=== PATIENT | female | born 1965 | race American Indian/Alaskan Native ===

== ENCOUNTER 2020-04-02 10:56 | Inpatient (IN) | payer MEDICAID ==
--- NOTE | 2020-04-02 11:58 | Event Note ---
ED Screening Note Date of service: 04/02/20 Time: 11:50 ED Screening Note: 54-year-old female presents with generalized upper abdominal pain with intermittent nausea and vomiting x1 week. Patient also complaining of neck pain. Past medical history: Hypertension, hernia repair She denies any injury, trauma, fall. She states she took her blood pressure medication today. This initial assessment/diagnostic orders/clinical plan/treatment(s) is/are subject to change based on patients health status, clinical progression and re- assessment by fellow clinical providers in the ED. Further treatment and workup at subsequent clinical providers discretion. Patient/guardian urged not to elope from the ED as their condition may be serious if not clinically assessed and managed. Initial orders include: cbc,cmp, ua
[2020-04-02] MEDS ORDERED: ONDANSETRON 4 MG ODT TAB PO ONE (12:01)
[2020-04-02] MEDS ORDERED: SODIUM CHLORIDE 0.9% 1000 ML 1,000 ML IV ONE (12:27)
[2020-04-02] MEDS ORDERED: ONDANSETRON 4 MG/2 ML INJ IV ONE (12:27)
[2020-04-02] MEDS ORDERED: FAMOTIDINE 20 MG/2 ML INJ IV ONE (12:27)
[2020-04-02] MEDS ORDERED: MORPHINE 4 MG/1 ML INJ IV ONE (12:28)
[2020-04-02 13:05] LABS: Basophils % (Auto) 0.3 % (0.0-1.8); Eosinophils # (Auto) 0.1 K/mm3 (0.0-0.4); Eosinophils % (Auto) 1.8 % (0.0-4.3); Hematocrit 38.7 % (30.3-42.9); Lymphocytes % (Auto) 26.9 % (13.4-35.0); Mean Corpuscular HGB Conc 34 % (30-34); Mean Corpuscular Volume 92 fl (79-97); Monocytes # (Auto) 0.5 K/mm3 (0.0-0.8); Monocytes % (Auto) 6.8 % (0.0-7.3); Platelet Count 266 K/mm3 (140-440); Red Blood Count 4.23 M/mm3 (3.65-5.03); Red Cell Distribution Width 14.7 % (13.2-15.2)
--- NOTE | 2020-04-02 13:29 | Ultrasound Report ---
ULTRASOUND ABDOMEN, LIMITED (RIGHT UPPER QUADRANT) INDICATION: RUQ/EPIGASTRIC PAIN. COMPARISON: None available. FINDINGS: Pancreas: Visualized portion shows no significant abnormality. Liver: No acute findings. Gallbladder: Several small gallstones are noted. There is borderline gallbladder wall edema. The sono grapher reported a positive sonographic Joshi sign. Bile ducts: Normal. Common Bile Duct measures 3 mm. Free fluid: None. Additional Findings: None. IMPRESSION: 1. While there is no common duct dilatation, gallstones are present with borderline gallbladder wall thickening. The development eng reported a positive sonographic Joshi sign. These findings are concernin g for acute cholecystitis, correlate clinically. Signer Name: Mingo Lennon MD Signed: 04/02/2020 1:25 PM Workstation Name: [id number]
[2020-04-02 13:37] LABS: Alanine Aminotransferase 7 units/L (7-56); Albumin 4.2 g/dL (3.9-5); BUN/Creatinine Ratio 11; Blood Urea Nitrogen 8 mg/dL (7-17); Calcium 9.2 mg/dL (8.4-10.2); Hemolysis Index 7
[2020-04-02 13:48] LABS: Bacteria,Urine 1+ /HPF (Negative); Bilirubin,Urine NEG (Negative); Blood,Urine NEG (Negative); Color,Urine Yellow (Yellow); Mucus,Urine FEW /HPF; Protein,Urine <15 mg/dL mg/dL (Negative); Urobilinogen,Urine < 2.0 mg/dL (<2.0)
[2020-04-02] MEDS ORDERED: cefTRIAXone/NS 1 GM/50 ML 1 GM/50 ML BAG IV ONE (14:34)
--- NOTE | 2020-04-02 14:51 | XRay Report ---
ABDOMEN 3 VIEW(S) INDICATION / CLINICAL INFORMATION: ABD PAIN, N,V. COMPARISON: None available. FINDINGS: TUBES / LINES: None. BOWEL GAS PATTERN: No significant abnormality. FREE AIR / EXTRALUMINAL GAS: None seen. ADDITIONAL FINDINGS: No significant additional findings. IMPRESSION: 1. No significant abnormality. Signer Name: Brett Young MD Signed: 04/02/2020 2:47 PM Workstation Name: [id number]
--- NOTE | 2020-04-02 14:56 | Emergency Department Report ---
<VICTORINA RAMOS - Last Filed: 04/02/20 16:08> ED Abdominal Pain HPI - General Chief Complaint: Abdominal Pain Stated Complaint: ABDOMINAL/NECK PAIN Time Seen by Provider: 04/02/20 12:01 Source: patient Mode of arrival: Ambulatory Limitations: No Limitations - History of Present Illness Initial Comments: 54-year-old female with a past medical history of obesity, GERD, hypertension, bilateral hernia repair, previous breast w reduction presents to the hospital complains 2 weeks of intermittent epigastric and right upper quadrant pain with approximately 2-3 episodes of vomiting with p.o. intake daily x1 week. Patient also complains of right-sided neck pain times several days worse with palpation and movement. Patient denies fever, hematemesis, hematochezia, sick contacts, recent travel. Last bowel movement was 3 days ago. Patient denies history of small bowel obstruction Severity scale (0 -10): 7 - Related Data Home Medications Medication Instructions Recorded Confirmed Last Taken Triamter/Hctz 37.5-25 mg 25 mg PO DAILY 04/02/20 04/02/20 04/02/20 [Maxzide-25] Previous Rx's Medication Instructions Recorded Last Taken Type Famotidine [Pepcid] 20 mg PO BID #30 tablet 04/02/20 Unknown Rx Nitrofurantoin [place]/M-Cryst 100 mg PO Q12HR #14 capsule 04/02/20 Unknown Rx [Macrobid CAP] Ondansetron [Zofran Odt] 4 mg PO Q8HR PRN #20 tab.rapdis 04/02/20 Unknown Rx traMADoL [Ultram 50 MG tab] 50 mg PO Q6HR PRN #20 tablet 04/02/20 Unknown Rx Allergies Allergy/AdvReac Type Severity Reaction Status Date / Time No Known Allergies Allergy Unverified 11/23/16 09:44 ED Review of Systems Comment: All other systems reviewed and negative ED Past Medical Hx - Past Medical History Hx Hypertension: Yes (2 YRS) Hx Congestive Heart Failure: ("THEY TOLD ME I HAD A LITTLE FLUID AROUND MY HEART") Hx Diabetes: Yes ("BORDERLINE") Hx GERD: Yes Hx Arthritis: Yes Hx HIV: No - Surgical History Hx Breast Surgery: Yes (BREAST REDUCTION) Additional Surgical History: Umbilical hernia repair - Social History Smoking Status: Current Every Day Smoker Substance Use Type: Alcohol - Medications Home Medications: Home Medications Medication Instructions Recorded Confirmed Last Taken Type Famotidine [Pepcid] 20 mg PO BID #30 tablet 04/02/20 Unknown Rx Nitrofurantoin [place]/M-Cryst 100 mg PO Q12HR #14 capsule 04/02/20 Unknown Rx [Macrobid CAP] Ondansetron [Zofran Odt] 4 mg PO Q8HR PRN #20 tab.rapdis 04/02/20 Unknown Rx Triamter/Hctz 37.5-25 mg 25 mg PO DAILY 04/02/20 04/02/20 04/02/20 History [Maxzide-25] traMADoL [Ultram 50 MG tab] 50 mg PO Q6HR PRN #20 tablet 04/02/20 Unknown Rx ED Physical Exam - General Limitations: No Limitations - Other Other exam information: General: No acute distress Head: Atraumatic Eyes: normal appearance ENT: Moist mucous membranes Neck: Normal appearance, no midline tenderness, right sided trapezius muscle tenderness to palpation and worse with movement Chest: Clear to auscultation bilaterally CV: Regular rate and rhythm Abdomen: Soft, normal bowel sounds, periumbilical scar noted from previous shelby ia repair. Right upper quadrant epigastric tenderness without rebound or guard Back: Normal inspection Extremity: Normal inspection, full range of motion Neuro: Alert O x 3, no facial asymmetry, speech clear, no gross motor sensory deficit Psych: Appropriate behavior Skin: No rash ED Course - Consultations Consultation #1: 04/02/20 15:30 Case d/w Dr Peguero air control/anti air warfare officer surgeon, ct reviewed with official report pending, Dr peguero at bedside to evaluate pt. 04/02/20 16:11 Patient prefers to try p.o. challenge and prefers to go home. CT report pending. Signed out to Dr. Sapphire Vivas to follow-up with CT report and p.o. challenge. plan to Discharge with prescribed meds if patient passes p.o. challenge and CT without additional findings surgical findings ED Medical Decision Making - Lab Data Result diagrams: 04/02/20 12:19 04/02/20 12:19 - Radiology Data Radiology results: report reviewed ULTRASOUND ABDOMEN, LIMITED (RIGHT UPPER QUADRANT) INDICATION: RUQ/EPIGASTRIC PAIN. COMPARISON: None available. FINDINGS: Pancreas: Visualized portion shows no significant abnormality. Liver: No acute findings. Gallbladder: Several small gallstones are noted. There is borderline gallbladder wall edema. The domestic maid reported a positive sonographic Joshi sign. Bile ducts: Normal. Common Bile Duct measures 3 mm. Free fluid: None. Additional Findings: None. IMPRESSION: 1. While there is no common duct dilatation, gallstones are present with borderline gallbladder wall thickening. The domestic maid reported a positive sonographic Joshi sign. These findings are concerning for acute cholecystitis, correlate clinically. - Medical Decision Making Patient received morphine, Zofran, and Pepcid with improvement in symptoms. Rocephin IV provided for UTI. Ultrasound report noted however, patient does not have leukocytosis, fever, or elevation LFTs/lipase to suggest cholecystitis. - Differential Diagnosis Biliary colic, gastroenteritis, obstruction, recurrent hernia, UTI Critical Care Time: No ED Disposition Clinical Impression: Biliary colic, Acute cholecystitis, UTI (urinary tract infection) Disposition: OP ADMIT IP TO THIS HOSP Is pt being admited?: No Does the pt Need Aspirin: No Condition: Stable Instructions: Biliary Colic (ED), Urinary Tract Infection in Women (ED), Cervical Sprain (ED) Additional Instructions: Take the medication as prescribed. Follow-up with your doctor or doctor/clinic provided. Return if symptoms worsen as indicated by your discharge instructions. Prescriptions: Nitrofurantoin [place]/M-Cryst [Macrobid CAP] 100 mg PO Q12HR #14 capsule Famotidine [Pepcid] 20 mg PO BID #30 tablet traMADoL [Ultram 50 MG tab] 50 mg PO Q6HR PRN #20 tablet PRN Reason: Pain Ondansetron [Zofran Odt] 4 mg PO Q8HR PRN #20 tab.rapdis PRN Reason: Nausea And Vomiting Referrals: ANASTACIA PEGUERO DO [Staff Physician] - 04/08/20 [facility] D[facility] MENCHACA MD [Primary Care Provider] - 3-5 Days <ESTELA VIVAS - Last Filed: 04/02/20 18:05> ED Review of Systems ROS: Stated complaint: ABDOMINAL/NECK PAIN Other details as noted in HPI ED Course Vital Signs 04/02/20 04/02/20 04/02/20 11:46 12:06 14:09 Temperature 98.8 F Pulse Rate 91 H 73 Respiratory 20 18 Rate Blood Pressure 155/91 164/93 [Right] O2 Sat by Pulse 100 100 Oximetry 04/02/20 17:37 Temperature Pulse Rate 73 Respiratory 20 Rate Blood Pressure 168/89 [Right] O2 Sat by Pulse 98 Oximetry ED Medical Decision Making - Lab Data Result diagrams: 04/02/20 12:19 04/02/20 12:19 Lab Results 04/02/20 04/02/20 04/02/20 Range/Units 12:07 12:19 12:19 WBC 7.3 (4.5-11.0) K/mm3 RBC 4.23 (3.65-5.03) M/mm3 Hgb 13.0 (10.1-14.3) gm/dl Hct 38.7 (30.3-42.9) % MCV 92 (79-97) fl MCH 31 (28-32) pg MCHC 34 (30-34) % RDW 14.7 (13.2-15.2) % Plt Count 266 (140-440) K/mm3 Lymph % (Auto) 26.9 (13.4-35.0) % [place] % (Auto) 6.8 (0.0-7.3) % Eos % (Auto) 1.8 (0.0-4.3) % Baso % (Auto) 0.3 (0.0-1.8) % Lymph # 2.0 (1.2-5.4) K/mm3 [place] # 0.5 (0.0-0.8) K/mm3 Eos # 0.1 (0.0-0.4) K/mm3 Baso # 0.0 (0.0-0.1) K/mm3 Seg Neutrophils % 64.2 (40.0-70.0) % Seg Neutrophils # 4.7 (1.8-7.7) K/mm3 Sodium 137 (137-145) mmol/L Potassium 3.9 (3.6-5.0) mmol/L Chloride 101.0 (98-107) mmol/L Carbon Dioxide 25 (22-30) mmol/L Anion Gap 15 mmol/L BUN 8 (7-17) mg/dL Creatinine 0.7 (0.7-1.2) mg/dL Estimated GFR > 60 ml/min BUN/Creatinine Ratio 11 % Glucose 92 (65-100) mg/dL Calcium 9.2 (8.4-10.2) mg/dL Total Bilirubin 0.50 (0.1-1.2) mg/dL AST 15 (5-40) units/L ALT 7 (7-56) units/L Alkaline Phosphatase 78 (35-129) units/L Total Protein 7.8 (6.3-8.2) g/dL Albumin 4.2 (3.9-5) g/dL Albumin/Globulin Ratio 1.2 % Lipase (13-60) units/L HCG, Qual (Negative) Urine Color Yellow (Yellow) Urine Turbidity Slightly-cloudy (Clear) Urine pH 7.0 (5.0-7.0) Ur Specific [place] 1.019 (1.003-1.030) Urine Protein <15 mg/dl (Negative) mg/dL Urine Glucose (UA) Neg (Negative) mg/dL Urine Ketones Neg (Negative) mg/dL Urine Blood Neg (Negative) Urine Nitrite Neg (Negative) Urine Bilirubin Neg (Negative) Urine Urobilinogen < 2.0 (<2.0) mg/dL Ur Leukocyte Esterase Lg (Negative) Urine WBC (Auto) 26.0 H (0.0-6.0) /HPF Urine RBC (Auto) 6.0 (0.0-6.0) /HPF U Epithel Cells (Auto) 8.0 (0-13.0) /HPF Urine Bacteria (Auto) 1+ (Negative) /HPF Urine Mucus Few /HPF 04/02/20 04/02/20 Range/Units 12:19 12:19 WBC (4.5-11.0) K/mm3 RBC (3.65-5.03) M/mm3 Hgb (10.1-14.3) gm/dl Hct (30.3-42.9) % MCV (79-97) fl MCH (28-32) pg MCHC (30-34) % RDW (13.2-15.2) % Plt Count (140-440) K/mm3 Lymph % (Auto) (13.4-35.0) % [place] % (Auto) (0.0-7.3) % Eos % (Auto) (0.0-4.3) % Baso % (Auto) (0.0-1.8) % Lymph # (1.2-5.4) K/mm3 [place] # (0.0-0.8) K/mm3 Eos # (0.0-0.4) K/mm3 Baso # (0.0-0.1) K/mm3 Seg Neutrophils % (40.0-70.0) % Seg Neutrophils # (1.8-7.7) K/mm3 Sodium (137-145) mmol/L Potassium (3.6-5.0) mmol/L Chloride (98-107) mmol/L Carbon Dioxide (22-30) mmol/L Anion Gap mmol/L BUN (7-17) mg/dL Creatinine (0.7-1.2) mg/dL Estimated GFR ml/min BUN/Creatinine Ratio % Glucose (65-100) mg/dL Calcium (8.4-10.2) mg/dL Total Bilirubin (0.1-1.2) mg/dL AST (5-40) units/L ALT (7-56) units/L Alkaline Phosphatase (35-129) units/L Total Protein (6.3-8.2) g/dL Albumin (3.9-5) g/dL Albumin/Globulin Ratio % Lipase 26 (13-60) units/L HCG, Qual Negative (Negative) Urine Color (Yellow) Urine Turbidity (Clear) Urine pH (5.0-7.0) Ur Specific [place] (1.003-1.030) Urine Protein (Negative) mg/dL Urine Glucose (UA) (Negative) mg/dL Urine Ketones (Negative) mg/dL Urine Blood (Negative) Urine Nitrite (Negative) Urine Bilirubin (Negative) Urine Urobilinogen (<2.0) mg/dL Ur Leukocyte Esterase (Negative) Urine WBC (Auto) (0.0-6.0) /HPF Urine RBC (Auto) (0.0-6.0) /HPF U Epithel Cells (Auto) (0-13.0) /HPF Urine Bacteria (Auto) (Negative) /HPF Urine Mucus /HPF - Medical Decision Making Patient was unable to tolerate p.o. and is continued to have nausea vomiting. She was given additional dose of antiemetic. Patient will be admitted to the hospitalist service and Dr. Peguero will consult Critical care attestation.: If time is entered above; I have spent that time in minutes in the direct care of this critically ill patient, excluding procedure time. ED Disposition Is pt being admited?: Yes Does the pt Need Aspirin: No Time of Disposition: 18:05
--- NOTE | 2020-04-02 16:24 | Consultation ---
History of Present Illness Consult date: 04/02/20 Reason for consult: gallstones Chief complaint: Abdominal pain - History of present illness History of present illness: 54-year-old female with history of obesity, hypertension, ventral hernia repair who presents to the emergency room with complaints of abdominal and neck pain. The patient has been complaining of epigastric and bilateral upper quadrant abdominal pain which she states is been present for the last several weeks. She states that the pain is intermittent and can become severe at times. She has not noticed any association with food however she states that she does become nauseated and vomit at times. The emesis is nonbloody and nonbilious. She has been having bowel movements. No fevers, chills. She describes the pain as sharp and sometimes burning. She denies sick contacts. She is asking for something to eat. Past History Past Medical History: hypertension (Obesity) Past Surgical History: hernia repair Social history: smoking (1 pack every other day), alcohol abuse (Occasional w ine) Family history: no significant family history Medications and Allergies Allergies Allergy/AdvReac Type Severity Reaction Status Date / Time No Known Allergies Allergy Unverified 11/23/16 09:44 Home Medications Medication Instructions Recorded Confirmed Last Taken Type Famotidine [Pepcid] 20 mg PO BID #30 tablet 04/02/20 Unknown Rx Ondansetron [Zofran Odt] 4 mg PO Q8HR PRN #20 tab.rapdis 04/02/20 Unknown Rx Triamter/Hctz 37.5-25 mg 25 mg PO DAILY 04/02/20 04/02/20 04/02/20 History [Maxzide-25] traMADoL [Ultram 50 MG tab] 50 mg PO Q6HR PRN #20 tablet 04/02/20 Unknown Rx Review of Systems All systems: negative (10 point review systems was performed negative except for that listed in HPI) Exam Vital Signs Temp 98.8 F 04/02/20 11:46 Narrative exam: Gen.: Awake, alert, oriented 3. No apparent distress ENT: Trachea midline. No lymphadenopathy. No scleral icterus or conjunctival pallor CV: S1, S2 present Respiratory: No audible wheezes Abdomen: Soft, obese, nondistended, tenderness to palpation in the right upper quadrant, epigastrium, left upper quadrant. No rebound, rigidity, guarding Extremities: No clubbing, cyanosis, edema Results - Labs 04/02/20 12:19 04/02/20 12:19 Abnormal lab results 04/02/20 Range/Units 12:07 Urine WBC (Auto) 26.0 H (0.0-6.0) /HPF Diabetes panel 04/02/20 Range/Units 12:19 Sodium 137 (137-145) mmol/L Potassium 3.9 (3.6-5.0) mmol/L Chloride 101.0 (98-107) mmol/L Carbon Dioxide 25 (22-30) mmol/L BUN 8 (7-17) mg/dL Creatinine 0.7 (0.7-1.2) mg/dL Glucose 92 (65-100) mg/dL Calcium 9.2 (8.4-10.2) mg/dL AST 15 (5-40) units/L ALT 7 (7-56) units/L Alkaline Phosphatase 78 (35-129) units/L Total Protein 7.8 (6.3-8.2) g/dL Albumin 4.2 (3.9-5) g/dL Calcium panel 04/02/20 Range/Units 12:19 Calcium 9.2 (8.4-10.2) mg/dL Albumin 4.2 (3.9-5) g/dL Pituitary panel 04/02/20 Range/Units 12:19 Sodium 137 (137-145) mmol/L Potassium 3.9 (3.6-5.0) mmol/L Chloride 101.0 (98-107) mmol/L Carbon Dioxide 25 (22-30) mmol/L BUN 8 (7-17) mg/dL Creatinine 0.7 (0.7-1.2) mg/dL Glucose 92 (65-100) mg/dL Calcium 9.2 (8.4-10.2) mg/dL Adrenal panel 04/02/20 Range/Units 12:19 Sodium 137 (137-145) mmol/L Potassium 3.9 (3.6-5.0) mmol/L Chloride 101.0 (98-107) mmol/L Carbon Dioxide 25 (22-30) mmol/L BUN 8 (7-17) mg/dL Creatinine 0.7 (0.7-1.2) mg/dL Glucose 92 (65-100) mg/dL Calcium 9.2 (8.4-10.2) mg/dL Total Bilirubin 0.50 (0.1-1.2) mg/dL AST 15 (5-40) units/L ALT 7 (7-56) units/L Alkaline Phosphatase 78 (35-129) units/L Total Protein 7.8 (6.3-8.2) g/dL Albumin 4.2 (3.9-5) g/dL - Imaging CT scan - abdomen: report reviewed, image reviewed CT scan - pelvis: report reviewed, image reviewed US - abdomen: report reviewed, image reviewed Assessment and Plan 54-year-old female with 1. Cholelithiasis 2. Urinary tract infection Pt stable and asking for something to eat. Pain has been present for several weeks, may be related to gallstones. No evidence for acute cholecystitis Plan: 1. PO challenge 2. IVF 3. prn pain control 4. If patient tolerates p.o. challenge and her pain is managed with p.o. medications, she may be discharged home with short-term follow-up in the surgery clinic. If she is unable to tolerate a p.o. challenge or her pain persist despite medications, recommend admission to the hospitalist service for symptom control and possible cholecystectomy. 5. Explained to patient that if she is discharged home, she should follow-up in the surgery clinic in 3 to 5 days. If her pain worsens and she is unable to tolerate a diet at home, she should return promptly to the emergency room. The patient prefers to go home and follow-up as an outpatient. She was agreeable to the plan. Discussed with Dr. Moreno Thank you, please call with questions or concerns
--- NOTE | 2020-04-02 16:28 | Cat Scan Report ---
CT of the abdomen and pelvis with contrast INDICATION: Mid and upper abdominal pain COMPARISON: 07/22/2018 FINDINGS: There is minimal basilar atelectasis. There is moderate-sized hiatal hernia. Liver, spleen, pancreas, adrenal glands and kidneys are unremarkable except for small hepatic and renal cysts. Gall stones are seen without cholecystitis. No biliary tree dilation. No fluid or adenopathy in the upper abdomen. CT of the pelvis shows a normal appendix. No uterine or adnexal masses. No diverticulosis or divertic ulitis. No hernia or bowel obstruction. Soft tissue in the midline abdominal wall is likely scarring. No pelvic fluid or adenopathy. No significant skeletal lesion. IMPRESSION: Incidental findings as described but no acute abnormality seen. Automated exposure control was utilized to diminish radiation dose. Signer Name: Brett Young MD Signed: 04/02/2020 4:24 PM Workstation Name: [id number]
[2020-04-02] MEDS ORDERED: ACETAMINOPHEN 325 MG TAB PO PRN (18:03)
[2020-04-02] MEDS ORDERED: ALBUTEROL 2.5 MG/3 ML NEBU IH PRN (18:03)
[2020-04-02] MEDS ORDERED: METOCLOPRAMIDE 10 MG/2 ML INJ IV ONE (18:04)
--- NOTE | 2020-04-02 18:06 | History and Physical Report ---
History of Present Illness Chief complaint: My stomach is hurting History of present illness: 54 YO Female with Obesity Hypoventilation Syndrome, GERD, HTN, DM, OA, Nicotine Dependence presents to ED for evaluation. Patient states that she has experienced abdominal pain over the last 2 weeks with worsening symptoms over the past 3 days. Patient states that her pain is currently 7/10, constant, worsening with palpation and movement, associated with nausea, and 3 episodes of vomiting, as well as decreased oral intake over the past 1 week. Patient states that her symptoms were initially intermittent but have become more frequent over the past 1 week. Patient transported to [facility] via private vehicle for further care and evaluation. Patient seen and evaluated in the emergency department. Lab and imaging studies reviewed. Patient underwent abdominal ultrasound which showed a positive Joshi sign which in combination with patient clinical symptoms is consistent with acute cholecystitis. Patient also found to have accelerated hypertension, urinary tract infection, and obesity hypoventilation syndrome. Surgical team consulted in ED. Patient admitted to surgical floor due to increased risk of decompensation. Patient initiated on IV antibiotic therapy, bowel rest, and IV fluid resuscitation therapy. Surgical intervention pending as per surgical team. Patient denies fever, chills, chest pain, palp itation, productive cough, skin rash, ingestion of food/water from new or different sources, bright red blood per rectum, or known ill contacts. No prior admission for review. All medication listed at time of admission has been reconciled. Past History Past Medical History: hypertension (Obesity) Past Surgical History: hernia repair Social history: single, smoking (1 pack every other day), alcohol abuse (Occasional wine) Family history: no significant family history Medications and Allergies Allergies Allergy/AdvReac Type Severity Reaction Status Date / Time No Known Allergies Allergy Unverified 11/23/16 09:44 Home Medications Medication Instructions Recorded Confirmed Last Taken Type Famotidine [Pepcid] 20 mg PO BID #30 tablet 04/02/20 Unknown Rx Nitrofurantoin Cassia/M-Cryst 100 mg PO Q12HR #14 capsule 04/02/20 Unknown Rx [Macrobid CAP] Ondansetron [Zofran Odt] 4 mg PO Q8HR PRN #20 tab.rapdis 04/02/20 Unknown Rx Triamter/Hctz 37.5-25 mg 25 mg PO DAILY 06/09/20 06/09/20 06/09/20 History [Maxzide-25] traMADoL [Ultram 50 MG tab] 50 mg PO Q6HR PRN #20 tablet 04/02/20 Unknown Rx Active Meds: Active Medications Acetaminophen (Tylenol) 650 mg PO Q4H PRN PRN Reason: Pain MILD(1-3)/Fever >100.5/DAY Albuterol (Proventil) 2.5 mg IH Q4HRT PRN PRN Reason: Shortness Of Breath Sodium Chloride (Nacl 0.9% 1000 Ml) 1,000 mls @ 100 mls/hr IV DIRECT KOBY Morphine Sulfate (Morphine) 2 mg IV Q4H PRN PRN Reason: Pain, Moderate (4-6) Ondansetron HCl (Zofran) 4 mg IV Q8H PRN PRN Reason: Nausea And Vomiting Sodium Chloride (Sodium Chloride Flush Syringe 10 Ml) 10 ml IV BID KOBY Sodium Chloride (Sodium Chloride Flush Syringe 10 Ml) 10 ml IV PRN PRN PRN Reason: LINE FLUSH Triamterene/HCTZ (Maxzide-25) each PO DAILY [facility] Review of Systems Constitutional: no weight loss, no weight gain, no fever, no chills, no sweats Ears, nose, mouth and throat: no ear pain, no ear discharge, no tinnitis, no decreased hearing, no nose pain Breasts: no change in shape, no swelling, no mass Cardiovascular: no chest pain, no orthopnea, no palpitations, no rapid/irregular heart beat, no edema, no syncope Respiratory: no cough, no cough with sputum, no excessive sputum, no hemoptysis, no shortness of breath Gastrointestinal: abdominal pain, nausea, vomiting, loss of appetite, no constipation, no change in bowel habits, no coffee ground emesis, no BRBPR, no melena, no hematochezia Genitourinary Female: no pelvic pain, no flank pain, no menorrhagia, no dysuria, no urinary frequency, no urgency Rectal: no pain, no incontinence, no bleeding Musculoskeletal: no neck stiffness, no neck pain, no shooting arm pain, no arm numbness/tingling, no low back pain, no shooting leg pain Integumentary: no rash, no pruritis, no redness, no sores, no wounds, no jaundice Neurological: no transient paralysis, no paralysis, no weakness, no parathesias, no tingling, no seizures, no syncope, no tremors, no ataxia Psychiatric: no anxiety, no memory loss, no change in sleep habits, no sleep disturbances, no insomnia, no hypersomnia, no change in appetite, no change in libido, no suicidal ideation Endocrine: no cold intolerance, no heat intolerance, no polyphagia, no polydipsia, no nocturia, no flushing Hematologic/Lymphatic: no easy bleeding, no lymphadenopathy, no lymphedema Allergic/Immunologic: no urticaria, no allergic rhinitis, no wheezing, no anaphylaxis, no angioedema Exam - Constitutional Vitals: Temp Pulse Resp BP Pulse Ox 98.8 F 73 20 168/89 98 04/02/20 11:46 04/02/20 17:37 04/02/20 17:37 04/02/20 17:37 04/02/20 17:37 General appearance: Present: mild distress, obese - EENT Eyes: Present: PERRL ENT: hearing intact, clear oral mucosa - Neck Neck: Present: supple, normal ROM - Respiratory Respiratory effort: normal Respiratory: bilateral: CTA - Cardiovascular Heart Sounds: Present: S1 & S2. Absent: rub, click - Extremities Extremities: pulses symmetrical, No edema Peripheral Pulses: within normal limits - Abdominal General gastrointestinal: Present: soft, tender, non-distended, normal bowel sounds Localized gastrointestinal: tender: RUQ Female genitourinary: Present: normal - Integumentary Integumentary: Present: clear, warm, dry - Musculoskeletal Musculoskeletal: gait normal, strength equal bilaterally - Psychiatric Psychiatric: appropriate mood/affect, intact judgment & insight - Neurologic Neurologic: CNII-XII intact, moves all extremities Results - Labs CBC & Chem 7: 04/02/20 12:19 04/02/20 12:19 Labs: Abnormal lab results 04/02/20 Range/Units 12:07 Urine WBC (Auto) 26.0 H (0.0-6.0) /HPF Assessment and Plan - Patient Problems (1) Acute cholecystitis Current Visit: Yes Status: Acute Plan to address problem: Surgical team consulted in ED, CT scan abdomen and pelvis, abdominal ultrasound, CBC, CMP, IV antibiotic therapy, IV fluid resuscitation therapy, bowel rest, pain control. Surgical intervention as per surgical team. (2) UTI (urinary tract infection) Current Visit: Yes Status: Acute Qualifiers: Encounter type: initial encounter Plan to address problem: IV antibiotic therapy, urinalysis, CBC, supportive care. (3) Obesity hypoventilation syndrome Current Visit: Yes Status: Acute Plan to address problem: Supplemental oxygen, nebulized therapy, noninvasive positive pressure ventilation as clinically indicated, incentive spirometry, early ambulation. (4) Nicotine dependence Current Visit: Yes Status: Acute Qualifiers: Nicotine product type: cigarettes Substance use status: in withdrawal Qualified Code(s): F17.213 - Nicotine dependence, cigarettes, with withdrawal Plan to address problem: Smoking cessation counseling, supportive care, behavior change counseling, +15 minutes. (5) DVT prophylaxis Current Visit: Yes Status: Acute Plan to address problem: SCD to bilateral lower extremities while in bed, patient is ambulatory.
[2020-04-02] MEDS: hydrALAZINE 20 MG/1 ML INJ IV PRN (18:26)
[2020-04-02] MEDS: MORPHINE 2 MG/1 ML INJ IV PRN ×2 (18:26→22:12)
[2020-04-02] MEDS: ONDANSETRON 4 MG/2 ML INJ IV PRN ×3 (18:26→22:13)
[2020-04-02] MEDS ORDERED: metroNIDAZOLE/NS 500 MG/100 ML 500 MG/100 ML BAG IV ONE (19:26)
[2020-04-02] MEDS: metroNIDAZOLE/NS 500 MG/100 ML 500 MG/100 ML BAG IV SCH (19:33)
[2020-04-02] MEDS: SODIUM CHLORIDE 0.9% 1000 ML 1,000 ML IV SCH (22:30)
[2020-04-03] MEDS: metroNIDAZOLE/NS 500 MG/100 ML 500 MG/100 ML BAG IV SCH ×3 (04:09→21:01)
[2020-04-03 05:24] LABS: Basophils % (Auto) 0.3 % (0.0-1.8); Eosinophils # (Auto) 0.2 K/mm3 (0.0-0.4); Eosinophils % (Auto) 2.4 % (0.0-4.3); Hematocrit 36.8 % (30.3-42.9); Hemoglobin 12.1 gm/dl (10.1-14.3); Lymphocytes # (Auto) 1.9 K/mm3 (1.2-5.4); Lymphocytes % (Auto) 29.1 % (13.4-35.0); Mean Corpuscular HGB Conc 33 % (30-34); Mean Corpuscular Volume 92 fl (79-97); Monocytes # (Auto) 0.5 K/mm3 (0.0-0.8); Monocytes % (Auto) 8.3 % (0.0-7.3); Platelet Count 237 K/mm3 (140-440); Red Blood Count 4.01 M/mm3 (3.65-5.03)
[2020-04-03 05:39] LABS: Alanine Aminotransferase 7 units/L (7-56); Albumin 3.7 g/dL (3.9-5); BUN/Creatinine Ratio 10; Blood Urea Nitrogen 9 mg/dL (7-17); Calcium 8.8 mg/dL (8.4-10.2); Hemolysis Index 7
[2020-04-03] MEDS: MORPHINE 2 MG/1 ML INJ IV PRN ×2 (08:34→21:01)
[2020-04-03] MEDS: TRIAMTER/HCTZ 37.5-25 MG TAB PO SCH (11:32)
--- NOTE | 2020-04-03 14:25 | Progress Note ---
Assessment and Plan 54-year-old female with 1. Cholecystitis 2. Urinary tract infection Pt stable and asking for something to eat. Pain has been present for several weeks, may be related to gallstones. No evidence for acute cholecystitis Plan: 1. Start clear liquid diet, n.p.o. past midnight 2. IV fluids 3. PRN pain and nausea control 4. DVT prophylaxis 5. GI prophylaxis 6. As patient continues to be symptomatic from her gallstones, with findings of borderline wall thickening of her gallbladder on ultrasound, I feel that her right upper quadrant pain is likely related to her gallstones. As patient is unable to tolerate a p.o. diet, would recommend proceeding with cholecystectomy. I discussed all risks, benefits, alternatives to surgery with the patient and questions were answered. Consent was obtained. 7. I also discussed with the patient that she has a moderate size hiatal hernia for which she will need referral to a foregut surgeon as an outpatient. The patient is added to the OR schedule for tomorrow as there is no time in the operating room today. Thank you, please call with questions or concerns Evaluation and treatment of this patient was during the time of the national and state emergency arising from COVID19 coronavirus pandemic. Treatment and procedures performed meet the current and available best practice and guidelines for patient during the COVID pandemic. Subjective Date of service: 04/03/20 Narrative: Patient seen and examined. She failed a p.o. challenge in the ER yesterday evening and was admitted to the hospital for right upper quadrant pain, nausea, vomiting. The patient states that she continues to have some nauseousness but no vomiting. She is having persistent right upper quadrant abdominal pain without radiation. No fevers, chills Objective Vital Signs - 12hr 04/03/20 04/03/20 04:26 12:11 Temperature 97.5 F L 98.2 F Pulse Rate 74 72 Respiratory 18 20 Rate Blood Pressure 131/79 116/66 O2 Sat by Pulse 93 97 Oximetry - General physical appearance Narrative Exam: Gen.: Awake, alert, oriented 3. No apparent distress ENT: Trachea midline. No lymphadenopathy. No scleral icterus or conjunctival pallor CV: S1, S2 present Respiratory: No audible wheezes Abdomen: Soft, nondistended, right upper quadrant tenderness to palpation. No rebound, rigidity, guarding Extremities: No clubbing, cyanosis, edema - Labs 04/03/20 04:51 04/03/20 04:51 Diabetes panel 04/03/20 Range/Units 04:51 Sodium 141 (137-145) mmol/L Potassium 3.8 (3.6-5.0) mmol/L Chloride 106.0 (98-107) mmol/L Carbon Dioxide 26 (22-30) mmol/L BUN 9 (7-17) mg/dL Creatinine 0.9 (0.7-1.2) mg/dL Glucose 102 H (65-100) mg/dL Calcium 8.8 (8.4-10.2) mg/dL AST 13 (5-40) units/L ALT 7 (7-56) units/L Alkaline Phosphatase 72 (35-129) units/L Total Protein 7.0 (6.3-8.2) g/dL Albumin 3.7 L (3.9-5) g/dL Calcium panel 04/03/20 Range/Units 04:51 Calcium 8.8 (8.4-10.2) mg/dL Albumin 3.7 L (3.9-5) g/dL Pituitary panel 04/03/20 Range/Units 04:51 Sodium 141 (137-145) mmol/L Potassium 3.8 (3.6-5.0) mmol/L Chloride 106.0 (98-107) mmol/L Carbon Dioxide 26 (22-30) mmol/L BUN 9 (7-17) mg/dL Creatinine 0.9 (0.7-1.2) mg/dL Glucose 102 H (65-100) mg/dL Calcium 8.8 (8.4-10.2) mg/dL Adrenal panel 04/03/20 Range/Units 04:51 Sodium 141 (137-145) mmol/L Potassium 3.8 (3.6-5.0) mmol/L Chloride 106.0 (98-107) mmol/L Carbon Dioxide 26 (22-30) mmol/L BUN 9 (7-17) mg/dL Creatinine 0.9 (0.7-1.2) mg/dL Glucose 102 H (65-100) mg/dL Calcium 8.8 (8.4-10.2) mg/dL Total Bilirubin 0.60 (0.1-1.2) mg/dL AST 13 (5-40) units/L ALT 7 (7-56) units/L Alkaline Phosphatase 72 (35-129) units/L Total Protein 7.0 (6.3-8.2) g/dL Albumin 3.7 L (3.9-5) g/dL
--- NOTE | 2020-04-03 20:21 | Progress Note ---
Assessment and Plan - Patient Problems (1) Acute cholecystitis Current Visit: Yes Status: Acute Plan to address problem: Surgical team consulted in ED, CT scan abdomen and pelvis reviewed, abdominal ultrasound reviewed, CBC, CMP, IV antibiotic therapy, IV fluid resuscitation therapy, bowel rest, pain control. Surgical intervention as per surgical team in a.m. (2) UTI (urinary tract infection) Current Visit: Yes Status: Acute Qualifiers: Encounter type: initial encounter Plan to address problem: IV antibiotic therapy, urinalysis, CBC, supportive care. (3) Obesity hypoventilation syndrome Current Visit: Yes Status: Acute Plan to address problem: Supplemental oxygen, nebulized therapy, noninvasive positive pressure ventila tion as clinically indicated, incentive spirometry, early ambulation. (4) Nicotine dependence Current Visit: Yes Status: Acute Qualifiers: Nicotine product type: cigarettes Substance use status: in withdrawal Qualified Code(s): F17.213 - Nicotine dependence, cigarettes, with withdrawal Plan to address problem: Smoking cessation counseling, supportive care, behavior change counseling, +15 minutes. (5) DVT prophylaxis Current Visit: Yes Status: Acute Plan to address problem: SCD to bilateral lower extremities while in bed, patient is ambulatory. History Interval history: 54 YO Female HD#2 with Acute Cholecystitis, UTI who convalesced well overnight. Patient continues to have pain and is unable to tolerate oral diet. Patient is pending surgical intervention in a.m. as per surgical team. Patient denies fever, chills, chest pain, palpitations, productive cough, vomiting, diarrhea. No reported nursing events overnight. Hospitalist Physical - Constitutional Vitals: Temp Pulse Resp BP Pulse Ox 98.6 F 74 24 129/73 94 04/03/20 16:52 04/03/20 16:52 04/03/20 16:52 04/03/20 16:52 04/03/20 16:52 General appearance: Present: mild distress, obese - EENT Eyes: Present: PERRL, EOM intact ENT: hearing intact - Neck Neck: Present: supple - Respiratory Respiratory effort: normal Respiratory: bilateral: CTA - Cardiovascular Rhythm: regular Heart Sounds: Present: S1 & S2 - Extremities Extremities: no ischemia Peripheral Pulses: within normal limits - Abdominal General gastrointestinal: soft, non-tender, non-distended - Integumentary Integumentary: Present: clear, warm, dry - Psychiatric Psychiatric: appropriate mood/affect, cooperative - Neurologic Neurologic: CNII-XII intact Results - Labs CBC & Chem 7: 04/03/20 04:51 04/03/20 04:51 Labs: Laboratory Last Values WBC 6.5 K/mm3 (4.5-11.0) 04/03/20 04:51 RBC 4.01 M/mm3 (3.65-5.03) 04/03/20 04:51 Hgb 12.1 gm/dl (10.1-14.3) 04/03/20 04:51 Hct 36.8 % (30.3-42.9) 04/03/20 04:51 MCV 92 fl (79-97) 04/03/20 04:51 MCH 30 pg (28-32) 04/03/20 04:51 MCHC 33 % (30-34) 04/03/20 04:51 RDW 15.0 % (13.2-15.2) 04/03/20 04:51 Plt Count 237 K/mm3 (140-440) 04/03/20 04:51 Lymph % (Auto) 29.1 % (13.4-35.0) 04/03/20 04:51 [place] % (Auto) 8.3 % (0.0-7.3) H 04/03/20 04:51 Eos % (Auto) 2.4 % (0.0-4.3) 04/03/20 04:51 Baso % (Auto) 0.3 % (0.0-1.8) 04/03/20 04:51 Lymph # 1.9 K/mm3 (1.2-5.4) 04/03/20 04:51 [place] # 0.5 K/mm3 (0.0-0.8) 04/03/20 04:51 Eos # 0.2 K/mm3 (0.0-0.4) 04/03/20 04:51 Baso # 0.0 K/mm3 (0.0-0.1) 04/03/20 04:51 Seg Neutrophils % 59.9 % (40.0-70.0) 04/03/20 04:51 Seg Neutrophils # 3.9 K/mm3 (1.8-7.7) 04/03/20 04:51 Sodium 141 mmol/L (137-145) 04/03/20 04:51 Potassium 3.8 mmol/L (3.6-5.0) 04/03/20 04:51 Chloride 106.0 mmol/L (98-107) 04/03/20 04:51 Carbon Dioxide 26 mmol/L (22-30) 04/03/20 04:51 Anion Gap 13 mmol/L 04/03/20 04:51 BUN 9 mg/dL (7-17) 04/03/20 04:51 Creatinine 0.9 mg/dL (0.7-1.2) 04/03/20 04:51 Estimated GFR > 60 ml/min 04/03/20 04:51 BUN/Creatinine Ratio 10 % 04/03/20 04:51 Glucose 102 mg/dL (65-100) H 04/03/20 04:51 POC Glucose 101 (70-105) 04/03/20 04:43 Calcium 8.8 mg/dL (8.4-10.2) 04/03/20 04:51 Total Bilirubin 0.60 mg/dL (0.1-1.2) 04/03/20 04:51 AST 13 units/L (5-40) 04/03/20 04:51 ALT 7 units/L (7-56) 04/03/20 04:51 Alkaline Phosphatase 72 units/L (35-129) 04/03/20 04:51 Total Protein 7.0 g/dL (6.3-8.2) 04/03/20 04:51 Albumin 3.7 g/dL (3.9-5) L 04/03/20 04:51 Albumin/Globulin Ratio 1.1 % 04/03/20 04:51 Lipase 26 units/L (13-60) 04/02/20 12:19 HCG, Qual Negative (Negative) 04/02/20 12:19 Urine Color Yellow (Yellow) 04/02/20 12:07 Urine Turbidity Slightly-cloudy (Clear) 04/02/20 12:07 Urine pH 7.0 (5.0-7.0) 04/02/20 12:07 Ur Specific [place] 1.019 (1.003-1.030) 04/02/20 12:07 Urine Protein <15 mg/dl mg/dL (Negative) 04/02/20 12:07 Urine Glucose (UA) Neg mg/dL (Negative) 04/02/20 12:07 Urine Ketones Neg mg/dL (Negative) 04/02/20 12:07 Urine Blood Neg (Negative) 04/02/20 12:07 Urine Nitrite Neg (Negative) 04/02/20 12:07 Urine Bilirubin Neg (Negative) 04/02/20 12:07 Urine Urobilinogen < 2.0 mg/dL (<2.0) 04/02/20 12:07 Ur Leukocyte Esterase Lg (Negative) 04/02/20 12:07 Urine WBC (Auto) 26.0 /HPF (0.0-6.0) H 04/02/20 12:07 Urine RBC (Auto) 6.0 /HPF (0.0-6.0) 04/02/20 12:07 U Epithel Cells (Auto) 8.0 /HPF (0-13.0) 04/02/20 12:07 Urine Bacteria (Auto) 1+ /HPF (Negative) 04/02/20 12:07 Urine Mucus Few /HPF 04/02/20 12:07 Microbiology: Microbiology 04/02/20 12:07 Urine,Clean Catch Urine Culture - Preliminary [place]/IV: Voiding Method Toilet IV Catheter Type [Left Peripheral IV Antecubital] Active Medications - Current Medications Current Medications: Generic Name Dose Route Start Last Admin Trade Name Freq PRN Reason Stop Dose Admin Acetaminophen 650 mg 04/02/20 18:03 Tylenol PO Q4H PRN Pain MILD(1-3)/Fever >100.5/DAY Albuterol 2.5 mg 04/02/20 18:03 Proventil IH Q4HRT PRN Shortness Of Breath Hydralazine HCl 10 mg 04/02/20 18:05 04/02/20 18:26 Apresoline IV 10 mg Q6HR PRN Administration Hypertension Sodium Chloride 1,000 mls @ 100 mls/hr 04/02/20 18:15 04/02/20 22:30 Nacl 0.9% 1000 Ml IV 100 mls/hr DIRECT KOBY Administration Levofloxacin/Dextrose 500 mg in 100 mls @ 100 mls/hr 04/03/20 10:00 04/03/20 11:22 Levaquin 500mg/100ml IV 100 mls/hr Q24H KOBY Administration Protocol Metronidazole 500 mg in 100 mls @ 100 mls/hr 04/02/20 19:00 04/03/20 12:30 Flagyl 500 Mg/100 Ml IV 100 mls/hr Q8H KOBY Administration Protocol Morphine Sulfate 2 mg 04/02/20 18:03 04/03/20 08:34 Morphine IV 2 mg Q4H PRN Administration Pain, Moderate (4-6) Ondansetron HCl 4 mg 04/02/20 18:03 04/02/20 22:13 Zofran IV 4 mg Q8H PRN Administration Nausea And Vomiting Sodium Chloride 10 ml 04/02/20 22:00 04/03/20 11:23 Sodium Chloride Flush Syringe 10 Ml IV 10 ml BID KOBY Administration Sodium Chloride 10 ml 04/02/20 18:03 Sodium Chloride Flush Syringe 10 Ml IV PRN PRN LINE FLUSH Triamterene/HCTZ 1 each 04/03/20 10:00 04/03/20 11:32 Maxzide-25 PO Not Given DAILY K[facility]Y
[2020-04-03] MEDS: SODIUM CHLORIDE 0.9% 1000 ML 1,000 ML IV SCH (21:01)
[2020-04-04] MEDS: metroNIDAZOLE/NS 500 MG/100 ML 500 MG/100 ML BAG IV SCH ×2 (04:37→10:36)
[2020-04-04] MEDS: TRIAMTER/HCTZ 37.5-25 MG TAB PO SCH (10:40)
[2020-04-04] MEDS ORDERED: LIDOCAINE (1%) 10 MG/1 ML VIAL 20 ML MDV ONE (13:40)
[2020-04-04] MEDS ORDERED: BUPIVACAINE/PF (0.5%) 5 MG/1 ML 30 ML VIAL INFILTRATI ONE ×2 (13:40→15:32)
[2020-04-04] MEDS ORDERED: LACTATED RINGERS 1,000 ML IV SCH (14:16)
[2020-04-04] MEDS ORDERED: SCOPOLAMINE TRANSDERMAL PATCH 72 HR TD NR (14:17)
--- NOTE | 2020-04-04 14:32 | Anesthesia Consultation ---
Anesthesia Consult and Med Hx Date of service: 04/04/20 - Airway Anesthetic Teeth Evaluation: Edentulous ROM Head & Neck: Adequate Mental/Hyoid Distance: Adequate Mallampati Class: Class II Intubation Access Assessment: Probably Good - Pulmonary Exam CTA: Yes - Cardiac Exam Cardiac Exam: RRR - Pre-Operative Health Status ASA Pre-Surgery Classification: ASA3 Proposed Anesthetic Plan: General - Pulmonary Hx Smoking: Yes Hx Respiratory Symptoms: No Hx Sleep Apnea: Yes (recently started CPAP) - Cardiovascular System Hx Hypertension: Yes Hx Heart Attack/AMI: No Hx Percutaneous Transluminal Coronary Angioplasty (PTCA): No Hx Cardia Arrhythmia: No - Central Nervous System CVA: No Hx Back Pain: Yes - Gastrointestinal Hx Gastroesophageal Reflux Disease: No - Endocrine Hx Renal Disease: No Hx Liver Disease: No Hx Insulin Dependent Diabetes: No Hx Non-Insulin Dependent Diabetes: No Hx Thyroid Disease: No - Hematic Hx Anemia: No - Other Systems Hx Obesity: Yes (BMI 51) - Additional Comments Anesthesia Medical History Comments: No hx anesthetic complications.
--- NOTE | 2020-04-04 14:33 | Anesthesia Day of Surgery ---
Anesthesia Day of Surgery - Day of Surgery Patient Examined: Yes Patient H&P Reviewed: Yes Patient is NPO: Yes
[2020-04-04] MEDS ORDERED: HYDROmorphone 1 MG/1 ML INJ IV PRN (14:34)
[2020-04-04] MEDS ORDERED: ePHEDrine SULFATE 50 MG/1 ML INJ ONE (15:02)
[2020-04-04] MEDS ORDERED: propofoL 200 MG/20 ML VIAL IV ONE (15:05)
[2020-04-04] MEDS ORDERED: ROCURONIUM 50 MG/5 ML INJ IV ONE (15:05)
[2020-04-04] MEDS ORDERED: LIDOCAINE MPF (2%) 20 MG/1 ML VIAL 5 ML ONE (15:05)
[2020-04-04] MEDS ORDERED: SUCCINYLCHOLINE CHLORIDE 200 MG/10 ML INJ MDV ONE (15:05)
[2020-04-04] MEDS ORDERED: NEOSTIGMINE 10MG/10 ML INJ MDV ONE (15:05)
[2020-04-04] MEDS ORDERED: PHENYLEPHRINE/NS 1,000 MCG/10 ML SYRINGE (OR USE) IV ONE (15:05)
[2020-04-04] MEDS ORDERED: fentaNYL 100 MCG/2 ML INJ ONE ×3 (15:05→16:39)
[2020-04-04] MEDS ORDERED: GLYCOPYRROLATE 0.4 MG/2 ML INJ ONE (15:05)
[2020-04-04] MEDS ORDERED: ONDANSETRON 4 MG/2 ML INJ ONE (15:05)
[2020-04-04] MEDS ORDERED: fentaNYL 250 MCG/5 ML INJ ONE (15:20)
[2020-04-04] MEDS ORDERED: WATER FOR IRRIG STERILE 1,500 ML BOTTLE IR ONE (15:32)
[2020-04-04] MEDS ORDERED: LIDOCAINE (1%) 10 MG/1 ML VIAL 20 ML MDV INFILTRATI ONE (15:32)
[2020-04-04] MEDS ORDERED: SODIUM CHLORIDE 0.9% IRR 1,500 ML BOTTLE IR ONE (15:33)
--- NOTE | 2020-04-04 16:48 | Post Operative Note ---
Pre-op diagnosis: acute cholecystitis Post-op diagnosis: same Findings: distended gallbladder with stones, adhesions to omentum Procedure: laparoscopic cholecystectomy Anesthesia: NILAY, local Surgeon: ANASTACIA GAYLE Bingo Attendant: JOCY COHN Estimated blood loss: minimal Pathology: list (gallbladder) Specimen disposition: to lab Condition: stable Disposition: PACU
--- NOTE | 2020-04-04 16:59 | Operative Report ---
Operative Report Operative Report: Date: 04/04/20 16:47 Pre-op diagnosis: acute cholecystitis Post-op diagnosis: same Findings: distended gallbladder with stones, adhesions to omentum Procedure: laparoscopic cholecystectomy Anesthesia: NILAY local Surgeon: ANASTACIA GAYLE Sorting Livestock Worker: JOCY COHN Estimated blood loss: minimal Pathology: list (gallbladder) Specimen disposition: to lab Condition: stable Disposition: PACU HPI and indication: Patient is a 54-year-old female with a history of morbid obesity and hypertension who presented to the emergency room with complaints of upper abdominal pain. The patient was found to have cholelithiasis on ultrasound and CT scan. She did not tolerate a p.o. challenge and therefore was admitted to the hospital. She continued to complain of persistent right upper quadrant abdominal pain and therefore it was recommended to proceed with cholecystectomy. All risks, benefits, alternatives to surgery were discussed with the patient and questions answered. Consent was obtained for laparoscopic cholecystectomy, possible open, possible cholangiogram Procedure in detail: The patient was identified in the preoperative area and taken back to the operating room, placed on the operating room table in supine position. After anesthesia was induced, the abdomen was prepped and draped in usual sterile fashion and timeout was performed. Local anesthetic was infilt rated into all of the skin incision sites. A herminio incision was made in the left upper quadrant through which a Veress needle was inserted. The Veress needle positioning was confirmed using the saline drop test and the abdomen insufflated to 15 mmHg. A 5 mm Optiview trocar was then placed through an incision in the right upper quadrant under direct visualization. The abdomen is inspected and there was no underlying injury to any of the abdominal structures. The Veress needle was identified and there was no injury in its tract, therefore it was removed. There were omental adhesions seen to the mid abdominal wall where the patient had a previous hernia repair. The gallbladder was visualized in the right upper quadrant. An additional 12 mm subxiphoid and 5 mm right lateral abdominal trochars were placed under direct visualization. A 5 mm trocar was placed slightly above and to the right of the umbilicus under direct visualization. The patient was placed in reverse Trendelenburg and tilted to the left. Omental adhesions to the liver and gallbladder were first dissected using hook electrocautery. The gallbladder was then decompressed using a laparoscopic needle and syringe. A total of 20 cc of dark green bile was aspirated. The patient had a very fatty liver, making the return retraction of the gallbladder over the liver difficult and therefore it was decided to perform a dome down approach. The peritoneum of the gallbladder was scored and dissection carried down using hook electrocautery in order to dissect the gallbladder off the liver bed. Once enough dissection was complete, the gallbladder was then able to be retracted cephalad and over the liver and the gallbladder neck was identified. Fatty tissue over the gallbladder neck as well as calluses noted were dissected meticulously using hook electrocautery. The cystic duct and artery were then carefully skeletonized using the [place] dissector and the critical view obtained. The cystic duct and artery were the only 2 structures seen entering the gallbladder. 2 clips were placed on the cystic artery proximally and one distally and this was transected in between the clips using hook electrocautery. 3 clips were placed on the proximal aspect of the cystic duct and one distally and this was transected in between the clips using a laparoscopic scissor. The remainder of the gallbladder was then dissected off the liver bed using hook electrocautery. The gallbladder was then placed into an Endo Catch bag and removed via the 12 mm port. The liver bed was checked for hemostasis which was carefully ensured. No bleeding or bile leakage was seen. The clips on the cystic duct and artery were visualized and intact. The patient was then placed back into neutral position and Morison's pouch in the gallbladder fossa were irrigated until the irrigant returned clear. The 12 mm port fascia was closed with interrupted 0 Vicryl sutures using the Delbert Bill device. The remaining ports were removed under direct visualization. Skin incisions were closed with 4-0 Monocryl subcuticular stitches and skin glue. All skin incisions were once again infiltrated with local anesthetic. At the end case all sponge, instrument, sharp counts were correct 2. The patient was awoken from anesthesia, extubated, taken to PACU in stable condition.
--- NOTE | 2020-04-04 17:49 | Post Anesthesia Evaluation ---
- Post Anesthesia Evaluation Patient Participated: Yes Airway Patent: Yes Stable Respiratory Function: Yes Nausea/Vomiting: No Temp > 96.8F: Yes Pain Manageable: Yes Adequeate Hydration: Yes Anesthesia Complications: No
--- NOTE | 2020-04-04 19:36 | Progress Note ---
Assessment and Plan - Patient Problems (1) Acute cholecystitis Current Visit: Yes Status: Acute Plan to address problem: Surgical team consulted in ED, CT scan abdomen and pelvis reviewed, abdominal ultrasound reviewed, CBC, CMP, IV antibiotic therapy, IV fluid resuscitation therapy, bowel rest, pain control. Surgical intervention today as per surgical team.. (2) UTI (urinary tract infection) Current Visit: Yes Status: Acute Qualifiers: Encounter type: initial encounter Plan to address problem: IV antibiotic therapy, urinalysis, CBC, supportive care. (3) Obesity hypoventilation syndrome Current Visit: Yes Status: Acute Plan to address problem: Supplemental oxygen, nebulized therapy, noninvasive positive pressure ventila tion as clinically indicated, incentive spirometry, early ambulation. (4) Nicotine dependence Current Visit: Yes Status: Acute Qualifiers: Nicotine product type: cigarettes Substance use status: in withdrawal Qualified Code(s): F17.213 - Nicotine dependence, cigarettes, with withdrawal Plan to address problem: Smoking cessation counseling, supportive care, behavior change counseling, +15 minutes. (5) DVT prophylaxis Current Visit: Yes Status: Acute Plan to address problem: SCD to bilateral lower extremities while in bed, patient is ambulatory. History Interval history: 54 YO Female HD#3 with Acute Cholecystitis, UTI who convalesced well overnight. Patient continues to have pain and is unable to tolerate oral diet. Patient is pending surgical intervention today as per surgical team. Patient denies fever, chills, chest pain, palpitations, productive cough, vomiting, diarrhea. No reported nursing events overnight. Hospitalist Physical - Constitutional Vitals: Temp Pulse Resp BP Pulse Ox 97.4 F L 60 14 153/91 96 04/04/20 17:40 04/04/20 18:10 04/04/20 18:10 04/04/20 18:10 04/04/20 18:10 General appearance: Present: mild distress, obese - EENT Eyes: Present: PERRL, EOM intact ENT: hearing intact - Neck Neck: Present: supple - Respiratory Respiratory effort: normal Respiratory: bilateral: CTA - Cardiovascular Rhythm: regular Heart Sounds: Present: S1 & S2 - Extremities Extremities: no ischemia Peripheral Pulses: within normal limits - Abdominal General gastrointestinal: soft, tender, non-distended, normal bowel sounds - Integumentary Integumentary: Present: clear, warm, dry - Psychiatric Psychiatric: appropriate mood/affect, cooperative - Neurologic Neurologic: CNII-XII intact Results - Labs CBC & Chem 7: 04/03/20 04:51 04/03/20 04:51 Labs: Laboratory Last Values WBC 6.5 K/mm3 (4.5-11.0) 04/03/20 04:51 RBC 4.01 M/mm3 (3.65-5.03) 04/03/20 04:51 Hgb 12.1 gm/dl (10.1-14.3) 04/03/20 04:51 Hct 36.8 % (30.3-42.9) 04/03/20 04:51 MCV 92 fl (79-97) 04/03/20 04:51 MCH 30 pg (28-32) 04/03/20 04:51 MCHC 33 % (30-34) 04/03/20 04:51 RDW 15.0 % (13.2-15.2) 04/03/20 04:51 Plt Count 237 K/mm3 (140-440) 04/03/20 04:51 Lymph % (Auto) 29.1 % (13.4-35.0) 04/03/20 04:51 Tompkins % (Auto) 8.3 % (0.0-7.3) H 04/03/20 04:51 Eos % (Auto) 2.4 % (0.0-4.3) 04/03/20 04:51 Baso % (Auto) 0.3 % (0.0-1.8) 04/03/20 04:51 Lymph # 1.9 K/mm3 (1.2-5.4) 04/03/20 04:51 Tompkins # 0.5 K/mm3 (0.0-0.8) 04/03/20 04:51 Eos # 0.2 K/mm3 (0.0-0.4) 04/03/20 04:51 Baso # 0.0 K/mm3 (0.0-0.1) 04/03/20 04:51 Seg Neutrophils % 59.9 % (40.0-70.0) 04/03/20 04:51 Seg Neutrophils # 3.9 K/mm3 (1.8-7.7) 04/03/20 04:51 Sodium 141 mmol/L (137-145) 04/03/20 04:51 Potassium 3.8 mmol/L (3.6-5.0) 04/03/20 04:51 Chloride 106.0 mmol/L (98-107) 04/03/20 04:51 Carbon Dioxide 26 mmol/L (22-30) 04/03/20 04:51 Anion Gap 13 mmol/L 04/03/20 04:51 BUN 9 mg/dL (7-17) 04/03/20 04:51 Creatinine 0.9 mg/dL (0.7-1.2) 04/03/20 04:51 Estimated GFR > 60 ml/min 04/03/20 04:51 BUN/Creatinine Ratio 10 % 04/03/20 04:51 Glucose 102 mg/dL (65-100) H 04/03/20 04:51 POC Glucose 101 (70-105) 04/03/20 04:43 Calcium 8.8 mg/dL (8.4-10.2) 04/03/20 04:51 Total Bilirubin 0.60 mg/dL (0.1-1.2) 04/03/20 04:51 AST 13 units/L (5-40) 04/03/20 04:51 ALT 7 units/L (7-56) 04/03/20 04:51 Alkaline Phosphatase 72 units/L (35-129) 04/03/20 04:51 Total Protein 7.0 g/dL (6.3-8.2) 04/03/20 04:51 Albumin 3.7 g/dL (3.9-5) L 04/03/20 04:51 Albumin/Globulin Ratio 1.1 % 04/03/20 04:51 Lipase 26 units/L (13-60) 04/02/20 12:19 HCG, Qual Negative (Negative) 04/02/20 12:19 Urine Color Yellow (Yellow) 04/02/20 12:07 Urine Turbidity Slightly-cloudy (Clear) 04/02/20 12:07 Urine pH 7.0 (5.0-7.0) 04/02/20 12:07 Ur Specific [place] 1.019 (1.003-1.030) 04/02/20 12:07 Urine Protein <15 mg/dl mg/dL (Negative) 04/02/20 12:07 Urine Glucose (UA) Neg mg/dL (Negative) 04/02/20 12:07 Urine Ketones Neg mg/dL (Negative) 04/02/20 12:07 Urine Blood Neg (Negative) 04/02/20 12:07 Urine Nitrite Neg (Negative) 04/02/20 12:07 Urine Bilirubin Neg (Negative) 04/02/20 12:07 Urine Urobilinogen < 2.0 mg/dL (<2.0) 04/02/20 12:07 Ur Leukocyte Esterase Lg (Negative) 04/02/20 12:07 Urine WBC (Auto) 26.0 /HPF (0.0-6.0) H 04/02/20 12:07 Urine RBC (Auto) 6.0 /HPF (0.0-6.0) 04/02/20 12:07 U Epithel Cells (Auto) 8.0 /HPF (0-13.0) 04/02/20 12:07 Urine Bacteria (Auto) 1+ /HPF (Negative) 04/02/20 12:07 Urine Mucus Few /HPF 04/02/20 12:07 Microbiology: Microbiology 04/02/20 12:07 Urine,Clean Catch Urine Culture - Final Hallman/IV: Voiding Method Toilet IV Catheter Type [Right Peripheral IV Antecubital] IV Catheter Type [Left Peripheral IV Antecubital] Active Medications - Current Medications Current Medications: Generic Name Dose Route Start Last Admin Trade Name Freq PRN Reason Stop Dose Admin Acetaminophen 650 mg 04/02/20 18:03 Tylenol PO Q4H PRN Pain MILD(1-3)/Fever >100.5/DAY Albuterol 2.5 mg 04/02/20 18:03 Proventil IH Q4HRT PRN Shortness Of Breath Hydralazine HCl 10 mg 04/02/20 18:05 04/02/20 18:26 Apresoline IV 10 mg Q6HR PRN Administration Hypertension Hydromorphone HCl 0.5 mg 04/04/20 14:34 Dilaudid IV Q10MIN PRN Pain , Severe (7-10) Sodium Chloride 1,000 mls @ 100 mls/hr 04/02/20 18:15 04/03/20 21:01 Nacl 0.9% 1000 Ml IV 100 mls/hr DIRECT KOBY Administration Lactated Ringer's 1,000 mls @ 100 mls/hr 04/04/20 14:16 04/04/20 14:20 Lactated Ringers IV 04/04/20 23:59 100 mls/hr DIRECT KOBY Administration Morphine Sulfate 2 mg 04/02/20 18:03 04/03/20 21:01 Morphine IV 2 mg Q4H PRN Administration Pain , Severe (7-10) Ondansetron HCl 4 mg 04/02/20 18:03 04/02/20 22:13 Zofran IV 4 mg Q8H PRN Administration Nausea And Vomiting Oxycodone/Acetaminophen 2 tab 04/04/20 16:46 Percocet 5/325 PO Q6H PRN Pain, Moderate (4-6) Scopolamine 1 each 04/04/20 14:17 04/04/20 14:20 Transderm-Scop TD 04/04/20 23:59 1 each PREOP NR Administration Sodium Chloride 10 ml 04/02/20 22:00 04/04/20 10:41 Sodium Chloride Flush Syringe 10 Ml IV 10 ml BID KOBY Administration Sodium Chloride 10 ml 04/02/20 18:03 Sodium Chloride Flush Syringe 10 Ml IV PRN PRN LINE FLUSH Triamterene/HCTZ 1 each 04/03/20 10:00 04/04/20 10:40 Maxzide-25 PO Not Given DAILY KOBY
[2020-04-04] MEDS: MORPHINE 2 MG/1 ML INJ IV PRN (22:02)
[2020-04-04] MEDS: hydrALAZINE 20 MG/1 ML INJ IV PRN (23:58)
[2020-04-04] MEDS: oxyCODONE /ACETAMINOPHEN 5-325MG TAB PO PRN (23:58)
[2020-04-05] MEDS: SODIUM CHLORIDE 0.9% 1000 ML 1,000 ML IV SCH (05:13)
[2020-04-05] MEDS: MORPHINE 2 MG/1 ML INJ IV PRN (05:13)
[2020-04-05] MEDS: TRIAMTER/HCTZ 37.5-25 MG TAB PO SCH (09:47)
[2020-04-05] MEDS: oxyCODONE /ACETAMINOPHEN 5-325MG TAB PO PRN (09:50)
--- NOTE | 2020-04-05 11:44 | Discharge Summary ---
Providers - Providers Date of Admission: 04/02/20 18:03 Attending physician: CHRISTINE WALL Primary care physician: WASHHOUSE HAND Hospitalization Condition: Stable Pertinent studies: CT scan abdomen and pelvis: Cholecystitis Procedures: Laparoscopic cholecystectomy Hospital course: 54 YO Female with Obesity Hypoventilation Syndrome, GERD, HTN, DM, OA, Nicotine Dependence presented to ED for evaluation. Patient stated that she had experienced abdominal pain over the prior 2 weeks with worsening symptoms over the 3 days prior to presentation. Patient stated that her pain was 7/10, constant, worsening with palpation and movement, associated with nausea, and 3 episodes of vomiting, as well as decreased oral intake over the previous 1 week. Patient stated that her symptoms were initially intermittent but have become more frequent over the past 1 week. Patient transported to [facility] via private vehicle for further care and evaluation. Patient seen and evaluated in the emergency department. Lab and imaging studies reviewed. Patient underwent abdominal ultrasound which showed a positive Joshi sign which in combination with patient clinical symptoms is consistent with acute cholecystitis. Patient also found to have accelerated hypertension, urinary tract infection, and obesity hypoventilation syndrome. Surgical team consulted in ED. Patient admitted to surgical floor due to increased risk of decompensation. Patient initiated on IV antibiotic therapy, bowel rest, and IV fluid resuscitation therapy. Patient denied fever, chills, chest pain, palpitation, productive cough, skin rash, ingestion of food/water from new or different sources, bright red blood per rectum, or known ill contacts. Patient treated with supportive care, bowel rest with mild improvement of symptoms. Patient medically optimized on hospital day 2. Patient taken to the operating room as per surgical team and underwent laparoscopic cholecystectomy. Patient treated with supportive care postoperatively. Patient diet advanced. On day of discharge the patient is medically optimized and back to usual state of health. Patient acknowledges pa in control with oral pain medication, patient tolerating diet. Patient knowledges flatus and bowel movement. Patient seen and evaluated prior to discharge but no significant new physical exam findings are elicited. Patient discharged home and instructed to follow with primary care physician within 3 to 5 days and to follow-up with surgery team as directed. Patient counseled regarding balanced diet, increase physical activity at discharge. Patient also instructed to follow-up with pulmonary as outpatient for sleep study. 35 minutes dedicated to patient discharge and coordination of care. Disposition: - TO HOME OR SELFCARE - Discharge Diagnoses (1) Acute cholecystitis Status: Acute (2) UTI (urinary tract infection) Status: Acute Qualifiers: Encounter type: initial encounter (3) Obesity hypoventilation syndrome Status: Acute (4) Nicotine dependence Status: Acute Qualifiers: Nicotine product type: cigarettes Substance use status: in withdrawal Qualified Code(s): F17.213 - Nicotine dependence, cigarettes, with withdrawal (5) DVT prophylaxis Status: Acute Core Measure Documentation - Palliative Care Palliative Care/ Comfort Measures: Not Applicable - Core Measures Any of the following diagnoses?: none Exam - Constitutional Vitals: Temp Pulse Resp BP Pulse Ox 98.0 F 72 18 132/82 94 04/05/20 06:05 04/05/20 06:05 04/05/20 06:05 04/05/20 06:05 04/05/20 08:31 General appearance: Present: obese - EENT Eyes: Present: PERRL ENT: hearing intact, clear oral mucosa - Neck Neck: Present: supple, normal ROM - Respiratory Respiratory effort: normal Respiratory: bilateral: CTA - Cardiovascular Heart Sounds: Present: S1 & S2. Absent: rub, click - Extremities Extremities: pulses symmetrical, No edema Peripheral Pulses: within normal limits - Abdominal General gastrointestinal: Present: soft, non-tender, non-distended, normal bowel sounds Female genitourinary: Present: normal - Integumentary Integumentary: Present: clear, warm, dry - Musculoskeletal Musculoskeletal: gait normal, strength equal bilaterally - Psychiatric Psychiatric: appropriate mood/affect, intact judgment & insight - Neurologic Neurologic: CNII-XII intact, moves all extremities Plan Activity: advance as tolerated Diet: low fat, low cholesterol, low salt Follow up with: ANASTACIA GAYLE DO [Staff Physician] - 14 Days PINE DAE MENCHACA MD [Referring] - 3-5 Days Prescriptions: Sennosides/Docusate Sodium [Docusate Sodium-Sennosides Tab] 1 each PO BID #30 tablet Nitrofurantoin [place]/M-Cryst [Macrobid CAP] 100 mg PO Q12HR #14 capsule Famotidine [Pepcid] 20 mg PO BID #30 tablet oxyCODONE /ACETAMINOPHEN [Percocet 5/325] 1 tab PO Q6HR PRN #30 tablet PRN Reason: Pain traMADoL [Ultram 50 MG tab] 50 mg PO Q6HR PRN #20 tablet PRN Reason: Pain Ondansetron [Zofran Odt] 4 mg PO Q8HR PRN #20 tab.rapdis PRN Reason: Nausea And Vomiting
--- NOTE | 2020-04-05 13:24 | Progress Note ---
Assessment and Plan 54-year-old female s/p laparoscopic cholecystectomy, POD 1 1. Cholecystitis 2. Urinary tract infection Pt stable with incisional pain managed with pain medications. Tolerating diet Plan: 1. Reg diet 2. IV fluids - dc 3. PRN PO pain and nausea control 4. DVT prophylaxis 5. GI prophylaxis 6. IS/pulm toilet 7. OK to dc from surgery standpoint with follow up in surgery clinic in 2 weeks. Verbal and written dc instructions left for patient. 8. I also discussed with the patient that she has a moderate size hiatal hernia for which she will need referral to a foregut surgeon as an outpatient. D/W Dr. Roblero Thank you, please call with questions or concerns Evaluation and treatment of this patient was during the time of the national and state emergency arising from COVID19 coronavirus pandemic. Treatment and p rocedures performed meet the current and available best practice and guidelines for patient during the COVID pandemic. Subjective Date of service: 04/05/20 Narrative: Pt seen and examined. c/o incisional pain localized to the epigastric incision. Pain controlled with pain medication. She is ambulating on her own. No f/c. Tolerating a diet. No n/v Objective Vital Signs - 12hr 04/05/20 04/05/20 06:05 08:31 Temperature 98.0 F Pulse Rate 72 Respiratory 18 Rate Blood Pressure 132/82 O2 Sat by Pulse 96 94 Oximetry - General physical appearance Narrative Exam: Gen: AAOx3. NAD CV: s1, S2+ resp: even and unlabored Abd: soft, ND, mild tenderness near epigastric incision. Incisions c/d/i. No r/r/g Ext: no c/c/e - Labs 04/03/20 04:51 04/03/20 04:51
[2020-04-05 13:29] VITALS: BP 126/87
== END 2020-04-05 13:15 | disposition home or self-care (01) | DRG 418 ==
LOC: ED 10:56 → 3A 18:03
PROVIDERS: ADMIT Internal Medicine; ATTEND Internal Medicine
PROC: 0FT44ZZ Resection of Gallbladder, Percutaneous Endoscopic Approach (ICD-10-PCS; principal; 2020-04-04)
DX: K80.00 Calculus of gallbladder with acute cholecystitis without obstruction (principal); E66.2 Morbid (severe) obesity with alveolar hypoventilation; N39.0 Urinary tract infection, site not specified; Z68.43 Body mass index [BMI] 50.0-59.9, adult; F17.213 Nicotine dependence, cigarettes, with withdrawal; K21.9 Gastro-esophageal reflux disease without esophagitis; I10 Essential (primary) hypertension; E11.9 Type 2 diabetes mellitus without complications; M19.90 Unspecified osteoarthritis, unspecified site; F17.210 Nicotine dependence, cigarettes, uncomplicated; Z71.6 Tobacco abuse counseling; Z79.4 Long term (current) use of insulin
CPT/HCPCS: 36415; 74022; 74177; 76705; 80053; 81001; 82962; 83690; 84703; 85025; 87086; 88304; 94760; 96374; 96375; G0378; J0330; J0360; J0696; J1956; J2270; J2370; J2405; J2704; J2710; J3010; J7030; J7120; Q0162; Q9967

== ENCOUNTER 2020-09-04 17:13 | Emergency (ER) | payer MEDICAID ==
[2020-09-04 21:42] VITALS: BP 124/74
[2020-09-04 21:58] LABS: Basophils % (Auto) 0.6 % (0.0-1.8); Eosinophils # (Auto) 0.2 K/mm3 (0.0-0.4); Eosinophils % (Auto) 2.6 % (0.0-4.3); Hematocrit 40.1 % (30.3-42.9); Hemoglobin 13.2 gm/dl (10.1-14.3); Lymphocytes % (Auto) 43.4 % (13.4-35.0); Mean Corpuscular HGB Conc 33 % (30-34); Mean Corpuscular Volume 93 fl (79-97); Monocytes # (Auto) 0.6 K/mm3 (0.0-0.8); Monocytes % (Auto) 9.2 % (0.0-7.3); Platelet Count 223 K/mm3 (140-440); Red Cell Distribution Width 15.8 % (13.2-15.2)
[2020-09-04 22:22] LABS: Alanine Aminotransferase 13 units/L (7-56); Albumin 4.1 g/dL (3.9-5); BUN/Creatinine Ratio 13; Blood Urea Nitrogen 12 mg/dL (7-17); Calcium 9.3 mg/dL (8.4-10.2); Hemolysis Index 9
[2020-09-04 23:08] LABS: Bilirubin,Urine NEG (Negative); Blood,Urine NEG (Negative); Calcium Oxalate Crystals,Urine 2+; Color,Urine Yellow (Yellow); Mucus,Urine 2+ /HPF
[2020-09-05] MEDS ORDERED: methylPREDNISolone Sod Succinate 125 MG/2 ML INJ IV ONE (00:13)
[2020-09-05] MEDS ORDERED: ASPIRIN 325 MG TAB PO ONE (00:13)
[2020-09-05] MEDS ORDERED: FAMOTIDINE 20 MG TAB PO ONE (00:23)
[2020-09-05] MEDS ORDERED: ALUM-MAG HYDROXIDE-SIMETHICONE 200-200-20MG/5ML ORAL LIQD 30 ML PO ONE (00:23)
[2020-09-05] MEDS ORDERED: LIDOCAINE VISCOUS 2% 15 ML ORAL LIQD PO ONE (00:23)
[2020-09-05] MEDS ORDERED: SODIUM CHLORIDE 0.9% 1000 ML 1,000 ML IV ONE (00:24)
[2020-09-05] MEDS ORDERED: DICYCLOMINE 20 MG/2 ML INJ IM ONE (00:24)
--- NOTE | 2020-09-05 01:32 | Vascular Lab Report ---
DUPLEX DOPPLER LOWER EXTREMITY VEINS, BILATERAL INDICATION: Lower leg pain. TECHNIQUE: Duplex doppler imaging was performed through the veins of both lower extremities using venous seth gege and other maneuvers. COMPARISON: None available. FINDINGS: Right Common Femoral vein: Negative. Right Superficial Femoral vein: Negative. Right Popliteal vein: Negative. Right Calf veins: Negative. Left Common Femoral vein: Negative. Left Superficial Femoral vein: Negative. Left Popliteal vein: Negative. Left Calf veins: Negative. Additional findings: None. IMPRESSION: 1. No sonographic evidence for DVT in either lower extremity. Signer Name: Dali Tariq MD Signed: 09/05/2020 1:27 AM Workstation Name: [id number]
--- NOTE | 2020-09-05 01:32 | XRay Report ---
CHEST 1 VIEW INDICATION / CLINICAL INFORMATION: cough. COMPARISON: 04/02/2020 FINDINGS: SUPPORT DEVICES: None. HEART / MEDIASTINUM: No significant abnormality. LUNGS / PLEURA: No significant pulmonary or pleural abnormality. Please note that the left lung base is poorly visualized due to overlying extrathoracic soft tissues/breast. No pneumothorax. ADDITIONAL FINDINGS: No significant additional findings. IMPRESSION: 1. No acute findings. Signer Name: Dali Tariq MD Signed: 09/05/2020 1:28 AM Workstation Name: [id number]
--- NOTE | 2020-09-05 03:44 | Cat Scan Report ---
CT abdomen pelvis w con INDICATION / CLINICAL INFORMATION: Patient complains of Generalized abdominal pain. TECHNIQUE: Axial CT imaging of abdomen and pelvis was obtained with IV contrast. Coronal and sagittal reformatte d imaging obtained and reviewed. All CT scans at this location are performed using CT dose reduction for ALARA by means of automated exposure control. COMPARISON: Prior CT abdomen/pelvis 04/02/2020 FINDINGS: CT abdomen with contrast demonstrates a small mass in the left lobe of the liver unchanged in appeara nce from prior studies, most likely small hemangioma. The liver is otherwise unremarkable. Spleen, pa ncreas, kidneys, and adrenal glands remain normal. Interval cholecystectomy since the most recent CT exam. No biliary dilatation. Small to moderate size hiatal hernia. CT pelvis with contrast demonstrates normal appearance of the appendix. No pelvic mass, free fluid, o r focal inflammatory change noted. GI tract is unremarkable. No acute finding identified within either lung base. No significant acute osseous abnormality. IMPRESSION: 1. No acute abnormality identified within the abdomen or pelvis. 2. Interval cholecystectomy since the prior study. 3. Stable benign hepatic lesion. 4. Small to moderate size hiatal hernia. Signer Name: Dali Tariq MD Signed: 09/05/2020 3:39 AM Workstation Name: [id number]
--- NOTE | 2020-09-05 04:02 | Emergency Department Report ---
ED Abdominal Pain HPI - General Chief Complaint: Abdominal Pain Stated Complaint: ABD PAIN, HEADACHE, LEG PAIN Source: patient Mode of arrival: Ambulatory Limitations: No Limitations - History of Present Illness Initial Comments: Patient is a 55-year-old -[place] female with a history of hypertension, brx-vajbfsi-nseasnmic diabetes, GERD and chronic osteoarthritis who presents to the ED with complaint of acute onset persistent severe epigastric pain, nausea and vomiting intermittently for the last 1 month. Patient also complains of severe bilateral lower extremity pain worse on the posterior right knee. Patient states that the epigastric pain is worse with food or having nausea and vomiting. Patient denies fall, traumatic injury, dizziness, syncope, chest jeanne n, shortness of breath, fever, chills, cough, heavy lifting, back pain, diarrhea, dysuria or urinary frequency and urgency, headache or neck pain, palpitations, vaginal bleeding or vaginal discharge and hematemesis. MD Complaint: abdominal pain (Epigastric pain), other (Bilateral lower leg pain, worse on the right popliteal area) -: Sudden, month(s) (1) Location: epigastric Radiation: none Migration to: epigastric Severity: severe Severity scale (0 -10): 7 Quality: cramping, burning Consistency: constant Improves With: nothing Worsens With: eating, vomiting Associated Symptoms: denies other symptoms, nausea, vomiting, anorexia. denies: diarrhea, fever, chills, dysuria, hematemesis, hematochezia, melena, syncope, other - Related Data Home Medications Medication Instructions Recorded Confirmed Last Taken Triamter/Hctz 37.5-25 mg 25 mg PO DAILY 04/02/20 04/02/20 04/02/20 [Maxzide-25] Previous Rx's Medication Instructions Recorded Last Taken Type Nitrofurantoin Jasper/M-Cryst 100 mg PO Q12HR #14 capsule 04/02/20 Unknown Rx [Macrobid CAP] traMADoL [Ultram 50 MG tab] 50 mg PO Q6HR PRN #20 tablet 04/02/20 Unknown Rx Sennosides/Docusate Sodium 1 each PO BID #30 tablet 04/05/20 Unknown Rx [Docusate Sodium-Sennosides Tab] oxyCODONE /ACETAMINOPHEN [Percocet 1 tab PO Q6HR PRN #30 tablet 04/05/20 Unknown Rx 5/325] Ondansetron [Zofran Odt] 4 mg PO Q8HR PRN #12 tab.rapdis 05/01/20 Unknown Rx Dicyclomine [Bentyl] 20 mg PO Q6H PRN #30 tablet 09/05/20 Unknown Rx Famotidine [Pepcid] 20 mg PO BID #60 tablet 09/05/20 Unknown Rx Naproxen 500 mg PO Q12H PRN #30 tablet 09/05/20 Unknown Rx Ondansetron [Zofran ODT TAB] 4 mg PO Q6HR PRN #20 tab.rapdis 09/05/20 Unknown Rx Allergies Allergy/AdvReac Type Severity Reaction Status Date / Time No Known Allergies Allergy Verified 05/01/20 10:03 ED Review of Systems ROS: Stated complaint: ABD PAIN, HEADACHE, LEG PAIN Other details as noted in HPI Constitutional: malaise. denies: chills, fever Eyes: denies: eye pain, eye discharge, vision change ENT: denies: ear pain, throat pain Respiratory: denies: cough, shortness of breath, wheezing Cardiovascular: denies: chest pain, palpitations Endocrine: no symptoms reported Gastrointestinal: abdominal pain (Epigastric pain), nausea, vomiting. denies: diarrhea Genitourinary: denies: urgency, dysuria, discharge Musculoskeletal: arthralgia (Bilateral lower extremity pain and knee pain). denies: back pain, joint swelling Skin: denies: rash, lesions Neurological: denies: headache, weakness, paresthesias Psychiatric: denies: anxiety, depression Hematological/Lymphatic: denies: easy bleeding, easy bruising ED Past Medical Hx - Past Medical History Previous Medical History?: Yes Hx Hypertension: Yes Hx Heart Attack/AMI: No Hx Congestive Heart Failure: No ("THEY TOLD ME I HAD A LITTLE FLUID AROUND MY HEART") Hx Diabetes: Yes ("BORDERLINE") Hx GERD: Yes Hx Liver Disease: No Hx Renal Disease: No Hx Arthritis: Yes Hx Seizures: No Hx Asthma: No Hx COPD: No Hx Dementia: No Hx HIV: No - Surgical History Past Surgical History?: Yes Hx Breast Surgery: Yes (BREAST REDUCTION) Additional Surgical History: Umbilical hernia repair - Social History Smoking Status: Never Smoker Substance Use Type: None - Medications Home Medications: Home Medications Medication Instructions Recorded Confirmed Last Taken Type Nitrofurantoin Jasper/M-Cryst 100 mg PO Q12HR #14 capsule 04/02/20 Unknown Rx [Macrobid CAP] Triamter/Hctz 37.5-25 mg 25 mg PO DAILY 04/02/20 04/02/20 04/02/20 History [Maxzide-25] traMADoL [Ultram 50 MG tab] 50 mg PO Q6HR PRN #20 tablet 04/02/20 Unknown Rx Sennosides/Docusate Sodium 1 each PO BID #30 tablet 04/05/20 Unknown Rx [Docusate Sodium-Sennosides Tab] oxyCODONE /ACETAMINOPHEN [Percocet 1 tab PO Q6HR PRN #30 tablet 04/05/20 Unknown Rx 5/325] Ondansetron [Zofran Odt] 4 mg PO Q8HR PRN #12 tab.rapdis 05/01/20 Unknown Rx Dicyclomine [Bentyl] 20 mg PO Q6H PRN #30 tablet 09/05/20 Unknown Rx Famotidine [Pepcid] 20 mg PO BID #60 tablet 09/05/20 Unknown Rx Naproxen 500 mg PO Q12H PRN #30 tablet 09/05/20 Unknown Rx Ondansetron [Zofran ODT TAB] 4 mg PO Q6HR PRN #20 tab.rapdis 09/05/20 Unknown Rx ED Physical Exam - General Limitations: No Limitations General appearance: alert, in no apparent distress - Head Head exam: Present: atraumatic, normocephalic, normal inspection - Eye Eye exam: Present: normal appearance, PERRL, EOMI Pupils: Present: normal accommodation - ENT ENT exam: Present: normal exam, normal orophraynx, mucous membranes moist, TM's normal bilaterally, normal external ear exam - Neck Neck exam: Present: normal inspection, full ROM. Absent: tenderness - Respiratory Respiratory exam: Present: normal lung sounds bilaterally. Absent: respiratory distress, wheezes, rhonchi, chest wall tenderness, accessory muscle use, decreased breath sounds - Cardiovascular Cardiovascular Exam: Present: regular rate, normal rhythm, normal heart sounds. Absent: systolic murmur, diastolic murmur, rubs, gallop - GI/Abdominal GI/Abdominal exam: Present: soft, tenderness (Palpable epigastric abdominal tenderness), normal bowel sounds. Absent: guarding, rebound, hyperactive bowel sounds, hypoactive bowel sounds, organomegaly, mass - Extremities Exam Extremities exam: Present: normal inspection, full ROM, normal capillary refill - Back Exam Back exam: Present: normal inspection, full ROM. Absent: tenderness, CVA tenderness (R), CVA tenderness (L), muscle spasm, paraspinal tenderness, vertebral tenderness - Neurological Exam Neurological exam: Present: alert, oriented X3, CN II-XII intact, normal gait, reflexes normal - Psychiatric Psychiatric exam: Present: normal affect, normal mood - Skin Skin exam: Present: warm, dry, intact, normal color. Absent: rash ED Course Vital Signs 09/04/20 21:40 Temperature 98.2 F Pulse Rate 77 Respiratory 18 Rate Blood Pressure 124/74 O2 Sat by Pulse 97 Oximetry ED Medical Decision Making - Lab Data Result diagrams: 09/04/20 21:46 09/04/20 21:46 - Radiology Data Radiology results: report reviewed, [place] [address] Cat Scan Report Signed Patient: DANIEL MEIER MR#: [id number] : 1965 Acct:[id number] Age/Sex: 55 / F ADM Date: 09/04/20 Loc: ED Attending Dr: Ordering Physician: WINIFRED FERRARI Date of Service: 09/05/20 Procedure(s): CT abdomen pelvis w con Accession Number(s): [id number] cc: WINIFRED FERRARI CT abdomen pelvis w con INDICATION / CLINICAL INFORMATION: Patient complains of Generalized abdominal pain. TECHNIQUE: Axial CT imaging of abdomen and pelvis was obtained with IV contrast. Coronal and sagittal reformatted imaging obtained and reviewed. All CT scans at this location are performed using CT dose reduction for ALARA by means of automated exposure control. COMPARISON: Prior CT abdomen/pelvis 04/02/2020 FINDINGS: CT abdomen with contrast demonstrates a small mass in the left lobe of the liver unchanged in appearance from prior studies, most likely small hemangioma. The liver is otherwise unremarkable. Spleen, pancreas, kidneys, and adrenal glands remain normal. Interval cholecystectomy since the most recent CT exam. No biliary dilatation. Small to moderate size hiatal hernia. CT pelvis with contrast demonstrates normal appearance of the appendix. No pelvic mass, free fluid, or focal inflammatory change noted. GI tract is unremarkable. No acute finding identified within either lung base. No significant acute osseous abnormality. IMPRESSION: 1. No acute abnormality identified within the abdomen or pelvis. 2. Interval cholecystectomy since the prior study. 3. Stable benign hepatic lesion. 4. Small to moderate size hiatal hernia. Signer Name: Dali Tariq MD Signed: 09/05/2020 3:39 AM Workstation Name: [id number] Transcribed By: JR Dictated By: Dali Tariq MD Electronically Authenticated By: Dali Tariq MD Signed Date/Time: 09/05/20338 DD/ 3 TD/TT: Findings [facility] [address] [place] [address] Vascular Lab Report Signed Patient: DANIEL MEIER MR#: [id number] : 1965 Acct:[id number] Age/Sex: 55 / F ADM Date: 09/04/20 Loc: ED Attending Dr: Ordering Physician: WINIFRED FERRARI Date of Service: 09/05/20 Procedure(s): VL venous duplex LE BILAT Accession Number(s): [id number] cc: WINIFRED FERRARI DUPLEX DOPPLER LOWER EXTREMITY VEINS, BILATERAL INDICATION: Lower leg pain. TECHNIQUE: Duplex doppler imaging was performed through the veins of both lower extremities using venous compression and other maneuvers. COMPARISON: None available. FINDINGS: Right Common Femoral vein: Negative. Right Superficial Femoral vein: Negative. Right Popliteal vein: Negative. Right Calf veins: Negative. Left Common Femoral vein: Negative. Left Superficial Femoral vein: Negative. Left Popliteal vein: Negative. Left Calf veins: Negative. Additional findings: None. IMPRESSION: 1. No sonographic evidence for DVT in either lower extremity. Signer Name: Dali Tariq MD Signed: 09/05/2020 1:27 AM Workstation Name: [id number] Transcribed By: Dictated By: Dali Tariq MD Electronically Authenticated By: Dali Tariq MD Signed Date/Time: 09/05/20126 DD/ 6 TD/TT: Findings [address] [address] XRay Report Signed Patient: DANIEL MEIER MR#: [id number] : 1965 Acct:[id number] Age/Sex: 55 / F ADM Date: 09/04/20 Loc: ED Attending Dr: Ordering Physician: WINIFRED FERRARI Date of Service: 09/05/20 Procedure(s): XR chest 1V ap Accession Number(s): [id number] cc: WINIFRED FERRARI Fluoro Time In Minutes: CHEST 1 VIEW INDICATION / CLINICAL INFORMATION: cough. COMPARISON: 04/02/2020 FINDINGS: SUPPORT DEVICES: None. HEART / MEDIASTINUM: No significant abnormality. LUNGS / PLEURA: No significant pulmonary or pleural abnormality. Please note that the left lung base is poorly visualized due to overlying extrathoracic soft tissues/breast. No pneumothorax. ADDITIONAL FINDINGS: No significant additional findings. IMPRESSION: 1. No acute findings. Signer Name: Dali Tariq MD Signed: 09/05/2020 1:28 AM Workstation Name: [id number] Transcribed By: Dictated By: Dali Tariq MD Electronically Authenticated By: Dali Tariq MD Signed Date/Time: 09/05/20127 DD/ 6 TD/TT: - Medical Decision Making This is a 55-year-old -[place] female with a history of hypertension, spu-ejmbqlz-oncuraokk diabetes, GERD and chronic osteoarthritis who presents to the ED with complaint of acute onset persistent severe epigastric pain, nausea and vomiting intermittently for the last 1 month. Patient also complains of severe bilateral lower extremity pain worse on the posterior right knee. Patient states that the epigastric pain is worse with food or having nausea and vomiting. In the ED, patient is alert and oriented x3 and is not in distress. Patient was treated for pain in the ED, also treated with antacids and antiemetics. Lab test results were reviewed and are all nonactionable. Chest x-ray shows no acute cardiopulmonary abnormalities. Bilateral lower extremity Doppler ultrasound showed no sonographic evidence of DVT. Abdomen pelvis CT scan with contrast showed no acute abnormality identified within the abdomen or pelvis. It also showed interval cholecystectomy since the prior study, but otherwise stable benign hepatic lesion and small to moderate size hiatal hernia. On reevaluation, patient's nausea and vomiting resolved with medication. The epigastric pain also resolved with treatment. Patient was discharged home on pain medications and antiemetics as well as antacids. Patient was advised to follow-up with her primary care physician in 5 to 7 days for reevaluation. Patient was advised return to the ED immediately if symptoms get worse. - Differential Diagnosis GERD; pancreatitis; gastritis; gastroenteritis; DVT; osteoarthritis Critical care attestation.: If time is entered above; I have spent that time in minutes in the direct care of this critically ill patient, excluding procedure time. ED Disposition Clinical Impression: Acute epigastric pain, Nausea and vomiting in adult patient, Chronic osteoarthritis GERD (gastroesophageal reflux disease) Qualifiers: Esophagitis presence: without esophagitis Qualified Code(s): K21.9 - Gastro- esophageal reflux disease without esophagitis Disposition: -01 TO HOME OR SELFCARE Is pt being admited?: No Does the pt Need Aspirin: No Condition: Stable Instructions: Abdominal Pain (ED), Nausea and Vomiting, Adult, [id number], Gastroesophageal Reflux Disease, Adult, [id number], Food Choices for G astroesophageal Reflux Disease, Adult, [id number], Abdominal Pain, Adult, Skms-[id number]-Pify Additional Instructions: All lab test results are unremarkable. Chest x-ray shows no acute cardiopulmonary abnormalities or pneumonitis. Lower extremity Doppler ultrasound showed no evidence of DVT. Abdomen pelvis CT scan with contrast showed no acute abnormalities. Therefore take medication with food, drink plenty of fluids and follow-up with your primary care physician in 5 to 7 days for reevaluation. Return to the ED immediately if symptoms get worse. Prescriptions: Dicyclomine [Bentyl] 20 mg PO Q6H PRN #30 tablet PRN Reason: Abdominal pain Naproxen 500 mg PO Q12H PRN #30 tablet PRN Reason: Pain , Severe (7-10) Famotidine [Pepcid] 20 mg PO BID #60 tablet Ondansetron [Zofran ODT TAB] 4 mg PO Q6HR PRN #20 tab.rapdis PRN Reason: Nausea And Vomiting Referrals: [facility] [Provider Group] - 7-10 days Time of Disposition: 04:08 Print Language: TAIWANESE
[2020-09-05] MEDS ORDERED: ASPIRIN 325 MG TAB ONE (04:06)
[2020-09-05] MEDS ORDERED: methylPREDNISolone Sod Succinate 125 MG/2 ML INJ ONE (04:06)
== END 2020-09-05 04:44 | disposition home or self-care (01) ==
LOC: ED 17:13
DX: K21.9 Gastro-esophageal reflux disease without esophagitis (principal); R10.13 Epigastric pain; R11.2 Nausea with vomiting, unspecified; M19.91 Primary osteoarthritis, unspecified site; I10 Essential (primary) hypertension; E11.9 Type 2 diabetes mellitus without complications; Z98.890 Other specified postprocedural states; Z79.899 Other long term (current) drug therapy
CPT/HCPCS: 36415; 71045; 74177; 80053; 81001; 83690; 84484; 85025; 93970; 96360; 96372; 99284; J0500; J2930; J7030; Q9967